=== PATIENT | male | born 2005 | race Caucasian/White ===

== ENCOUNTER 2023-03-28 16:26 | Outpatient (REF) | payer MEDICAID, SELFPAY ==
[2023-03-29 09:59] LABS: CT PCR NOT DETECTED (Not Detect.); NG PCR NOT DETECTED (Not Detect.)
[2023-03-31 09:34] LABS: RPR Rapid Plasma Reagin NON-REACTIVE (NON-REACTIVE)
[2023-04-01 16:53] LABS: HIV RNA PCR Qn Copies Not Detected Copies/mL; HIV RNA PCR Qn Log Copies Not Detected Log cps/mL
== END 2023-03-28 16:27 | disposition home or self-care (01) ==
LOC: HO.HHCL 16:26
PROVIDERS: Visit Provider Nurse Practitioner Family
DX: Z11.3 Encounter for screening for infections with a predominantly sexual mode of transmission (principal)
CPT/HCPCS: 0353U; 36415; 86592; 87536; 87900